=== PATIENT | female | born 1965 | race Native Hawaiian/Other Pacific Islander ===

== ENCOUNTER 2021-06-30 13:59 | Emergency (ER) | payer OTHER ==
[~2021-06-30] VITALS: Ht 165.1 cm; Wt 104.3 kg
[2021-06-30 14:48] LABS: PLATELET COUNT 306 K/uL (152-353)
[2021-06-30 14:57] LABS: POTASSIUM 2.9 mmol/L (3.6-5.2)
[2021-06-30 16:35] VITALS: BP 121/74; TEMP 98.6
== END 2021-06-30 16:35 | disposition home or self-care (01) ==
LOC: ED 13:59
PROVIDERS: Emergency Medicine Emergency Medical Services
DX: N30.01 Acute cystitis with hematuria (principal)
CPT/HCPCS: 80053; 81000; 85027; 87077; 87086; 87088; 87186; 96365; 96375; 99284; J0696; J1885; J2405